=== PATIENT | male | born 1990 | race Caucasian/White ===

== ENCOUNTER 2019-06-17 14:52 | Emergency (ER) | payer SELFPAY ==
[~2019-06-17] VITALS: Ht 167.6 cm; Wt 65.8 kg
--- NOTE | 2019-06-17 14:57 | NUR ---
ED Nurse Note: PT BROUGHT IN BY [facility]ARVIS CARDOZA FOR MEDICAL CLEARANCE.
[2019-06-17 14:58] VITALS: BP 118/84
--- NOTE | 2019-06-17 15:05 | Emergency Room Report ---
History of Present Illness General Chief Complaint: Medical Clearance Source: Patient Present Illness HPI 28-year-old male with history of drug abuse and psychiatric disorder brought in by [employer] for medical clearance. According to [employer] patient elicited some facial pain however at this time patient denies any pain. Reports that he is just thirsty and is requesting water and food. Vital signs within normal limit. Denies chest pain, shortness of breath, cough and congestion. Allergies: Coded Allergies: LITHIUM (Verified Allergy, Unknown, 06/17/19) COVID-19 Screening Contact w/high risk pt: No Recent Travel to affected area: No Experienced COVID-19 symptoms?: No Patient History Past Medical History: see triage record Past Surgical History: unable to obtain Pertinent Family History: unable to obtain Social History: Reports: drug use - methamphetamine Immunizations: UTD Reviewed Nursing Documentation: PMH: Agreed; PSxH: Agreed Nursing Documentation-PMH History Of Psychiatric Problem: Yes Review of Systems All Other Systems: negative except mentioned in HPI Physical Exam Vital Signs Date Time Temp Pulse Resp B/P (MAP) Pulse Ox O2 Delivery O2 Flow Rate FiO2 06/17/19 14:53 98.4 88 19 122/79 (93) 98 Room Air Sp02 EP Interpretation: reviewed, normal General Appearance: no apparent distress, alert, GCS 15, non-toxic Head: normocephalic, atraumatic Eyes: bilateral eye normal inspection, bilateral eye PERRL ENT: hearing grossly normal, normal pharynx, no angioedema, normal voice Neck: full range of motion, no bony tend, supple/symm/no masses Respiratory: chest non-tender, lungs clear, normal breath sounds, speaking full sentences Cardiovascular #1: regular rate, rhythm, no edema Gastrointestinal: normal bowel sounds, non tender, soft, non-distended, no guarding, no rebound Genitourinary: no CVA tenderness Musculoskeletal: back normal Neurologic: alert, oriented Psychiatric: judgement/insight normal, memory normal, mood/affect normal, no suicidal/homicidal ideation Skin: no rash Lymphatic: no adenopathy Medical Decision Making PA Attestation All diagnoses and treatment plans were reviewed and discussed with my supervising physician Dr. Womack Diagnostic Impression: Primary Impression: Medical clearance for incarceration ER Course 28-year-old male with history of drug abuse and psychiatric disorder brought in by [employer] for medical clearance. According to [employer] patient elicited some facial pain however at this time patient denies any pain. Reports that he is just thirsty and is requesting water and food. Vital signs within normal limit. Denies chest pain, shortness of breath, cough and congestion. Patient admits that he uses methamphetamine and other drugs. Ddx considered but are not limited to: generalized anxiety disorder, panic attack, depression with psycotic featurs, bipolar disorder, drug overdose Vital signs: are WNL, pt. 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 DISCHARGE: At this time pt. is stable for d/c to home. Will provide printed patient care instructions, and any necessary prescriptions. Care plan and follow up instructions have been discussed with the patient prior to discharge. Medically cleared to be discharged enforcement. Patient in no distress. Patient does not elicit any pain Last Vital Signs Date Time Temp Pulse Resp B/P (MAP) Pulse Ox O2 Delivery O2 Flow Rate FiO2 06/17/19 14:58 82 17 Room Air 06/17/19 14:58 98.4 118/84 98 Disposition: LAW ENFORCEMENT IN [facility]UST Condition: Stable Hillary Freeman June 17, 2019 15:05
[2019-06-17 15:09] VITALS: BP 122/80
--- NOTE | 2019-06-17 15:09 | NUR ---
ER DISCHARGE NOTE: Patient is cleared to be discharged per ERMD, pt is aox4, on room air, with stable vital signs. pt was given dc and prescription instructions, pt was able to verbalize understanding, pt id band removed without complications. pt is able to ambulate with steady gait. pt took all belongings and left with [facility].
== END 2019-06-17 15:09 ==
LOC: EMR 15:05
DX: R51 Headache (principal); Z88.8 Allergy status to other drugs, medicaments and biological substances; F15.90 Other stimulant use, unspecified, uncomplicated
CPT/HCPCS: 99281